=== PATIENT | male | born 1940 | race Caucasian/White ===

== ENCOUNTER 2016-07-20 14:14 | Outpatient (CLI) | payer BC ==
[2016-07-20 17:58] LABS: Microalbumin Urine 1.3 mg/dL (0.5-50.0)
== END 2016-07-20 14:15 | disposition home or self-care (01) ==
LOC: HPCALD 14:14
PROVIDERS: ATTEND Family Medicine
DX: E11.9 Type 2 diabetes mellitus without complications (principal)
CPT/HCPCS: 82043

== ENCOUNTER 2017-01-25 09:21 | Outpatient (CLI) | payer BC ==
[2017-01-25 10:33] LABS: #Eosinphils 0.1 thou/uL (0.0-0.7); #Lymphocytes 1.2 thou/uL (1.20-3.40); #Monocytes 0.5 thou/uL (0.11-0.59); %Basophils 1.1 % (0.0-1.0); %Eosinophils 2.5 % (0.0-10.0); %Lymphocytes 30.5 % (21.0-51.0); %Monocytes 12.7 % (0.0-10.0); %Neutrophils 53.3 % (42.0-75.0); Hemoglobin 13.8 g/dL (14.0-18.0); Mean Corpuscular HGB CONC 33.2 g/dL (32.0-36.0); Mean Corpuscular Hemoglobin 33.4 pg (27.0-31.0); Mean Platelet Volume 6.6 fL (7.4-10.4); Platelet Count 248 thou/uL (130-400); RBC Distribution Width 11.4 % (11.5-14.5); Red Blood Cell (RBC) Count 4.13 mill/uL (4.70-6.10); White Blood Cell (WBC) Count 3.8 thou/uL (4.8-10.8)
[2017-01-25 11:02] LABS: ALT (SGPT) 20 U/L (8-55); AST (SGOT) 17 U/L (5-34); Albumin 4.2 g/dL (3.4-4.8); Alkaline Phosphatase 61 U/L (40-150); Anion Gap 13 mmol/L (10-20); BUN (Urea Nitrogen) 14 mg/dL (8.4-25.7); Bilirubin, Total 0.6 mg/dL (0.2-1.2); Calc. Creatinine Clearance 0 mL/min (70-130); Calcium 9.3 mg/dL (7.8-10.44); Carbon Dioxide 28 mmol/L (23-31); Cardiac Risk 2.4 (Less than 4.5); Chloride 105 mmol/L (98-107); Cholesterol 170 mg/dl (< 200 Desired); Estimated GFR-MDRD Greater than 90; Globulin 2.3 g/dL (2.4-3.5); Glucose 121 mg/dL (83-110); HDL Cholesterol 72 mg/dL (>60 Neg Risk); LDL Cholesterol, Calculated 90 mg/dL; Potassium 4.3 mmol/L (3.5-5.1); Protein, Total 6.5 g/dL (5.8-8.1); Sodium 142 mmol/L (136-145); Triglycerides 39 mg/dL (Less than 150)
[2017-01-25 11:11] LABS: Hemoglobin A1c 5.6 % (4.0-6.0)
== END 2017-01-25 09:22 | disposition home or self-care (01) ==
LOC: HPCALD 09:21
PROVIDERS: ATTEND Family Medicine
DX: E11.9 Type 2 diabetes mellitus without complications (principal)
CPT/HCPCS: 36415; 80053; 80061; 83036; 84443; 85025

== ENCOUNTER 2018-07-15 10:38 | Emergency (ER) | payer MEDICARE, BC ==
[2018-07-15 11:04] LABS: #Eosinphils 0.1 thou/uL (0.0-0.7); #Lymphocytes 0.9 thou/uL (1.20-3.40); #Neutrophils 6.3 thou/uL (1.40-6.50); %Basophils 0.6 % (0.0-1.0); %Eosinophils 0.8 % (0.0-10.0); %Lymphocytes 10.4 % (21.0-51.0); %Monocytes 11.8 % (0.0-10.0); %Neutrophils 76.5 % (42.0-75.0); Hemoglobin 11.9 g/dL (14.0-18.0); Mean Corpuscular HGB CONC 35.3 g/dL (32.0-36.0); Mean Corpuscular Hemoglobin 33.8 pg (27.0-31.0); Mean Corpuscular Volume 95.8 fL (78.0-98.0); Mean Platelet Volume 7.3 fL (7.4-10.4); Platelet Count 228 thou/uL (130-400); RBC Distribution Width 12.1 % (11.5-14.5); Red Blood Cell (RBC) Count 3.53 mill/uL (4.70-6.10); White Blood Cell (WBC) Count 8.2 thou/uL (4.8-10.8)
[2018-07-15 11:21] LABS: ALT (SGPT) 17 U/L (8-55); AST (SGOT) 16 U/L (5-34); Albumin 4.2 g/dL (3.4-4.8); Alkaline Phosphatase 70 U/L (40-150); Anion Gap 13 mmol/L (10-20); BUN (Urea Nitrogen) 11 mg/dL (8.4-25.7); Bilirubin, Total 1.6 mg/dL (0.2-1.2); Calc. Creatinine Clearance 0 mL/min (70-130); Calcium 9.3 mg/dL (7.8-10.44); Carbon Dioxide 24 mmol/L (23-31); Chloride 106 mmol/L (98-107); Estimated GFR-MDRD Greater than 90; Globulin 2.6 g/dL (2.4-3.5); Glucose 130 mg/dL (83-110); Potassium 3.8 mmol/L (3.5-5.1); Protein, Total 6.8 g/dL (5.8-8.1); Sodium 139 mmol/L (136-145)
[2018-07-15] MEDS ORDERED: Furosemide 100 MG/10 ML VIAL ONE (11:50)
[2018-07-15] MEDS ORDERED: Lorazepam 0.5 MG TAB ONE (12:28)
--- NOTE | 2018-07-15 17:24 | RAD ---
PORTABLE CHEST: Date: 07-15-18 An AP portable film at 1029 is compared with an 01-17-05 study. FINDINGS: The heart is enlarged. I do not feel the vessels are overly congestion. No large effusions are seen. Elevation of the left hemidiaphragm is chronic. No lobar consolidation was evident. IMPRESSION: Cardiomegaly. POS: HOME
== END 2018-07-15 13:30 | disposition short-term general hospital (02) ==
LOC: BURERS 10:38
DX: I11.0 Hypertensive heart disease with heart failure (principal); I50.9 Heart failure, unspecified; I48.91 Unspecified atrial fibrillation; K21.9 Gastro-esophageal reflux disease without esophagitis; E78.5 Hyperlipidemia, unspecified; N35.919 Unspecified urethral stricture, male, unspecified site
CPT/HCPCS: 71045; 80053; 83880; 84443; 84484; 85025; 85379; 93005; 94760; 96374; J1940

== ENCOUNTER 2018-08-16 14:15 | Outpatient (CLI) | payer MEDICARE, BC ==
[2018-08-16 18:04] LABS: Anion Gap 15 mmol/L (10-20); BUN (Urea Nitrogen) 15 mg/dL (8.4-25.7); Calc. Creatinine Clearance 0 mL/min (70-130); Calcium 9.5 mg/dL (7.8-10.44); Carbon Dioxide 25 mmol/L (23-31); Chloride 106 mmol/L (98-107); Estimated GFR-MDRD 79; Glucose 105 mg/dL (83-110); Potassium 4.3 mmol/L (3.5-5.1); Sodium 142 mmol/L (136-145)
--- NOTE | 2018-08-16 19:05 | RAD ---
CHEST TWO VIEWS: 08/16/18 Comparison is made with several prior chest films. The cardiac size is unchanged. There is no congest ion or pleural effusion. Elevation of the left hemidiaphragm is chronic. There is a little bit of str eaking in the right base and behind the heart on the lateral view. These findings seem more like scar ring than acute infiltrate. The lungs are otherwise clear. IMPRESSION: Right lower lobe streaking that is really not much different than the prior exam. Some portion of thi s is possibly chronic. POS: HOME
== END 2018-08-16 14:16 | disposition home or self-care (01) ==
LOC: BURRAD 14:15
PROVIDERS: ATTEND Family Medicine
DX: J18.1 Lobar pneumonia, unspecified organism (principal); N17.9 Acute kidney failure, unspecified; E11.9 Type 2 diabetes mellitus without complications
CPT/HCPCS: 36415; 71046; 80048; 83036

== ENCOUNTER 2020-05-15 16:23 | Emergency (ER) | payer MEDICARE, BC ==
[2020-05-15] MEDS ORDERED: Acetaminophen 325 MG TAB ONE (17:25)
[2020-05-15 18:08] LABS: #Lymphocytes 0.9 thou/uL (1.20-3.40); #Monocytes 0.5 thou/uL (0.11-0.59); %Basophils 0.6 % (0.0-1.0); %Eosinophils 0.1 % (0.0-10.0); %Lymphocytes 25.7 % (21.0-51.0); %Monocytes 14.2 % (0.0-10.0); %Neutrophils 59.4 % (42.0-75.0); Hemoglobin 12.6 g/dL (14.0-18.0); Mean Corpuscular HGB CONC 33.7 g/dL (32.0-36.0); Mean Corpuscular Hemoglobin 34.3 pg (27.0-31.0); Mean Platelet Volume 7.6 fL (7.4-10.4); Platelet Count 148 thou/uL (130-400); RBC Distribution Width 11.4 % (11.5-14.5); Red Blood Cell (RBC) Count 3.66 mill/uL (4.70-6.10); White Blood Cell (WBC) Count 3.4 thou/uL (4.8-10.8)
[2020-05-15 18:12] LABS: MDiff Complete? YES; Manual Diff?? NO
[2020-05-15 18:16] LABS: ALT (SGPT) 24 U/L (8-55); AST (SGOT) 32 U/L (5-34); Alkaline Phosphatase 67 U/L (40-110); Anion Gap 18 mmol/L (10-20); BUN (Urea Nitrogen) 17 mg/dL (8.4-25.7); Bilirubin, Total 0.9 mg/dL (0.2-1.2); Calc. Creatinine Clearance 0 mL/min (70-130); Calcium 8.6 mg/dL (7.8-10.44); Carbon Dioxide 23 mmol/L (23-31); Chloride 101 mmol/L (98-107); Glucose 131 mg/dL (83-110); Potassium 5.1 mmol/L (3.5-5.1); Sodium 137 mmol/L (136-145)
--- NOTE | 2020-05-15 19:06 | RAD ---
RADIOGRAPH CHEST 1 VIEW: DATE: 05/15/2020 HISTORY: 79-year-old male with cough and fever COMPARISON: 08/16/2018 FINDINGS: There is no airspace density, pulmonary edema, or pneumothorax. The lateral costophrenic angles are n ot effaced. Left hemidiaphragm is chronically elevated. No interval change. IMPRESSION: 1. No acute pulmonary findings. 2. Chronically elevated left hemidiaphragm.
--- NOTE | 2020-05-15 19:35 | CT ---
CT THORAX NONCONTRAST: DATE: 05/15/2020 HISTORY: 79-year-old male with dyspnea and fever COMPARISON: 09/02/2018 FINDINGS: Again noted is the moderate volume of bilateral fibroglandular breast tissue. There is a new finding of multifocal patchy small, mostly subpleural groundglass infiltrates, in the bilateral upper lobes and right lower lobe. Region of chronic, coarse subpleural densities at lateral and posterior base of right lower lobe is u nchanged. No high-grade stenosis of trachea or bilateral mainstem bronchi. Tortuosity of thoracic aorta without aneurysm. No pleural effusion, pneumothorax, or pericardial effusion. Multilevel mild and moderate degenerative disc disease throughout the thoracic spine. 1 level of severe degenerative disc disease at lower T-spine. At least one small subcentimeter partially calcified gallstone identified. IMPRESSION: 1) multifocal small bilateral groundglass infiltrates: Probably COVID-19 pneumonia. 2) somewhat severe bilateral gynecomastia. 3) cholelithiasis.
[2020-05-15] MEDS ORDERED: Doxycycline 100 MG CAP ONE (21:53)
[2020-05-16 18:29] LABS: SARS-CoV-2 MS2 Positive; SARS-CoV-2 N Gene Positive; SARS-CoV-2 S Gene Positive; SARS-CoV-2 by NAA DETECTED (NotDetected); SARS-CoV-2 orf1ab Positive
== END 2020-05-15 21:55 | disposition home or self-care (01) ==
LOC: BURERS 16:23
DX: U07.1 COVID-19 (principal); I11.0 Hypertensive heart disease with heart failure; I50.9 Heart failure, unspecified; I48.91 Unspecified atrial fibrillation; E11.9 Type 2 diabetes mellitus without complications; K21.9 Gastro-esophageal reflux disease without esophagitis; E78.5 Hyperlipidemia, unspecified; E78.00 Pure hypercholesterolemia, unspecified
CPT/HCPCS: 36415; 71045; 71250; 80053; 83605; 83880; 84484; 85025; 87635; 87804; 93005; U0003

== ENCOUNTER 2021-06-01 19:27 | Emergency (ER) | payer MEDICARE, BC | END 2021-06-01 21:09 | disposition home or self-care (01) | LOC: BURERS 19:27 | DX: J20.8 Acute bronchitis due to other specified organisms (principal); I11.0 Hypertensive heart disease with heart failure; I50.9 Heart failure, unspecified; E11.9 Type 2 diabetes mellitus without complications; I48.91 Unspecified atrial fibrillation; K21.9 Gastro-esophageal reflux disease without esophagitis; E78.5 Hyperlipidemia, unspecified; E78.00 Pure hypercholesterolemia, unspecified | CPT/HCPCS: 71046 ==

== ENCOUNTER 2022-01-26 14:57 | Outpatient (CLI) | payer MEDICARE, BC | END 2022-01-26 14:58 | disposition home or self-care (01) | LOC: BURRAD 14:57 | PROVIDERS: ATTEND Family Medicine | DX: I50.9 Heart failure, unspecified (principal) | CPT/HCPCS: 36415; 71046; 83880 ==